=== PATIENT | female | born 1970 | race Caucasian/White ===

== ENCOUNTER 2024-04-30 09:07 | Emergency (ER) | payer OTHER ==
[2024-04-30] MEDS ORDERED: MORPHINE 4 MG/ML SYR ONE (09:35)
[2024-04-30] MEDS ORDERED: FAMOTIDINE 20 MG/2 ML VIAL IV ONE (09:35)
[2024-04-30] MEDS ORDERED: ONDANSETRON 4 MG/2 ML VIAL ONE (09:35)
[2024-04-30] MEDS ORDERED: NA CHLORIDE 0.9% 1,000 ML ONE (09:35)
[2024-04-30 10:19] LABS: Specific Gravity < 1.005 (1.005-1.030); Sqamous Epithelial None Seen /HPF (None Seen); Urine Bacteria <20 /HPF (<20); Urine Bilirubin NEGATIVE (Negative); Urine Blood Trace (Negative); Urine Clarity Clear (Clear); Urine Color Colorless (Yellow); Urine Culture Reflex Order NOT NEEDED; Urine Glucose NEGATIVE (Negative); Urine Ketones NEGATIVE (Negative); Urine Microscopic Reflex YN ORDER UMIC; Urine Nitrite NEGATIVE (Negative); Urine Protein NEGATIVE (Negative); Urine RBC <5 /HPF (None Seen); Urine Urobilinogen Normal (Normal); Urine WBC None Seen /HPF (<5); Urine pH 6.5 (5.0-7.0)
[2024-04-30 10:41] LABS: Absolute Lymphocytes (CBC) 1.7 K/uL (0.7-4.9); Absolute Monocytes 0.7 K/uL (0.1-1.3); Absolute Neutrophil 2.9 K/uL (1.8-8.0); Basophils % 0.5 % (0-1.3); Eosinophils % 0.7 % (0-4.4); Hematocrit 46.5 % (36.0-45.0); Hemoglobin 15.8 g/dL (12.0-15.0); MCH 30.4 pg (27.0-35.0); MCHC 34.1 g/dL (32.0-36.0); MCV 89.2 fL (80-100); MPV 7.8 fL (7.6-11.3); Neutrophils % 53.8 % (41.7-73.7); Nucleated Red Blood Cells % 0.1 % (0-0); Platelets 211 thou/uL (152-406); RBC Red Blood Cell Count 5.21 M/uL (3.86-4.86)
[2024-04-30 11:08] LABS: Albumin 3.3 g/dL (3.4-5.0); Bilirubin Total 0.2 mg/dL (0.2-1.0); Globulin 3.3 g/dL (2.3-3.5); Protein, Total 6.6 g/dL (6.4-8.2)
--- NOTE | 2024-04-30 11:30 | RAD REPORT ---
EXAMINATION: CT ABDOMEN AND PELVIS WITH CONTRAST CLINICAL INDICATION: Abdominal pain TECHNIQUE: CT abdomen and pelvis was performed, after the administration of 100 cc Isovue-300.. Sagit samuel and coronal reconstructions were obtained. One or more of the following dose reduction techniques were used: Automated exposure control, adjustment of the mA and kV according to patient si ze, and iterative reconstruction. Unless otherwise specified, incidental findings do not require dedicated imaging follow-up. [id number]. Oral contrast was given. COMPARISON: .None FINDINGS: Liver, spleen, pancreas, adrenals and kidneys appear unremarkable No evidence of diverticulitis. Mild apparent thickening wall of sigmoid colon. Normal appendix. Hysterectomy. No adnexal mass. : IMPRESSION: Mild apparent thickening wall of colon may represent a mild colitis or be secondary to incomplete dis tention.
--- NOTE | 2024-04-30 11:47 | ER ---
Nurse's Notes [facility] Name: Cole Stone Age: 53 yrs Sex: Female : 1970 Arrival Date: 04/30/2024 Time: 09:07 Bed 6 Private MD: Diagnosis: Abdominal pain, Generalized;Left sided colitis;Left sided colitis without complications;Hypokalemia Presentation: 04/30 09:20 Chief complaint: Patient states: Saturday started having diarrhea, last night had abd iw pains. Coronavirus screen: At this time, the client does not indicate any symptoms associated with coronavirus-19. Ebola Screen: No symptoms or risks identified at this time. Initial Sepsis Screen: Does the patient meet any 2 criteria? No. Patient's initial sepsis screen is negative. Does the patient have a suspected source of infection? No. Patient's initial sepsis screen is negative. Risk Assessment: Do you want to hurt yourself or someone else? Patient reports no desire to harm self or others. Onset of symptoms was April 27, 2024. 09:20 Method Of Arrival: Ambulatory iw 09:20 Acuity: ELOISA 3 iw Triage Assessment: 09:30 General: Appears in no apparent distress. uncomfortable, Behavior is calm, cooperative, bp appropriate for age. Pain: Complains of pain in abdomen. EENT: No deficits noted. Neuro: No deficits noted. Cardiovascular: No deficits noted. Respiratory: No deficits noted. GI: Reports lower abdominal pain, diarrhea. : No signs and/or symptoms were reported regarding the genitourinary system. Derm: No deficits noted. Musculoskeletal: No deficits noted. 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 - Infectious Disease History:: Denies. - Social history:: Smoking status: Patient reports the use of cigarette tobacco products, smokes one-half pack cigarettes per day. Screenin:06 [facility] ED Fall Risk Assessment (Adult) History of falling in the last 3 months, bp including since admission No falls in past 3 months (0 pts) Confusion or Disorientation No (0 pts) Intoxicated or Sedated No (0 pts) Impaired Gait No (0 pts) Mobility Assist Device Used No (0 pt) Altered Elimination No (0 pt) Score/Fall Risk Level 0 - 2 = Low Risk Oriented to surroundings. Abuse screen: Denies threats or abuse. Denies injuries from another. Nutritional screening: No deficits noted. Tuberculosis screening: No symptoms or risk factors identified. Assessment: 09:30 General: Appears in no apparent distress. uncomfortable, Behavior is calm, cooperative, bp appropriate for age. Pain: Complains of pain in left lower quadrant and right lower quadrant. GI: Bowel sounds present X 4 quads. Abd is soft X 4 quads. 12:04 Reassessment: DC ON HOLD FOR IV ABX. bp 13:45 Reassessment: Patient appears in no apparent distress at this time. No changes from cm10 previously documented assessment. Patient and/or family updated on plan of care and expected duration. Pain level reassessed. Patient is alert, oriented x 3, equal unlabored respirations, skin warm/dry/pink. Vital Signs: 09:20 BP 136 / 103; Pulse 84; Resp 19; Temp 96.8; Pulse Ox 100% on R/A; iw 10:57 BP 133 / 85; Pulse 80; Pulse Ox 98% on R/A; ap3 12:07 BP 138 / 92; Pulse 72; Resp 16; Pulse Ox 100% ; bp ED Course: 09:12 Patient arrived in ED. al6 09:14 King Copeland MD is Attending Physician. vernon 09:21 Triage completed. iw 09:22 Arm band placed on. iw 09:30 Joey Blackburn, RN is Primary Nurse. bp 10:00 Initial lab(s) drawn, by vt, sent to lab. Urine collected: clean catch specimen, clear. bp Inserted saline lock: 22 gauge in left wrist, using aseptic technique. Blood collected. Flushed with 10 mL NS. 11:15 CT Abd/Pelvis - IV Contrast Only In Process Unspecified. EDMS 11:45 Marques Lofton DO is Referral Physician. vernon 11:45 Oliver Medina MD is Referral Physician. vernon 12:06 Patient has correct armband on for positive identification. bp 13:57 Provided Education on: Follow-up instructions. cm10 13:57 No provider procedures requiring assistance completed. IV discontinued, intact, cm10 bleeding controlled, No redness/swelling at site. Pressure dressing applied. Administered Medications: 09:59 Drug: Famotidine IVP 20 mg IVP once; dilute with 10 mL 0.9% NaCl; give over 2 minutes bp Route: IVP; Site: left wrist; 13:55 Follow up: Response: No adverse reaction cm10 09:59 Drug: Ondansetron IVP 4 mg IVP once; over 2 minutes Route: IVP; Site: left wrist; bp 13:54 Follow up: Response: No adverse reaction cm10 10:00 Drug: morphine IVP or IV 4 mg IVP once over 4 mins Route: IVP; Infused Over: 4 mins; bp Site: left wrist; 13:54 Follow up: Response: No adverse reaction cm10 10:00 Drug: NS 0.9% IV 1000 ml IV at 1 bolus Per protocol; to be given as a bolus over 60 bp minutes Route: IV; Rate: 1 bolus; Site: left wrist; 13:55 Follow up: Response: No adverse reaction; IV Status: Completed infusion; IV Intake: cm10 1000ml 12:00 Drug: Potassium PO Effervescent Tablet 50 mEq PO once; dissolve in 4 ounces of water or bp juice Route: PO; 13:56 Follow up: Response: No adverse reaction cm10 12:00 Drug: Ciprofloxacin IVPB 400 mg 200 ml IVPB once over 60 mins Volume: 200 ml; Route: bp IVPB; Infused Over: 60 mins; Site: left wrist; 13:56 Follow up: Response: No adverse reaction; IV Status: Completed infusion; IV Intake: cm10 200ml 12:00 Drug: metroNIDAZOLE IVPB 500 mg 100 ml IVPB at 200 ml/hr once over 30 mins Volume: 100 bp ml; Route: IVPB; Rate: 200 ml/hr; Infused Over: 30 mins; Site: left wrist; 13:56 Follow up: Response: No adverse reaction; IV Status: Completed infusion; IV Intake: cm10 100ml 13:54 Drug: Ondansetron PO 4 mg PO once Route: PO; cm10 13:56 Follow up: Response: No adverse reaction cm10 Medication: 13:58 VIS not applicable for this client. cm10 Intake: 13:55 IV: 1000ml; Total: 1000ml. cm10 13:56 IV: 100ml; Total: 1100ml. cm10 13:56 IV: 200ml; Total: 1300ml. cm10 Outcome: 11:46 Discharge ordered by . vernon 13:57 Discharged to home ambulatory, cm10 13:57 Condition: good 13:57 Discharge instructions given to patient, Instructed on discharge instructions, follow up and referral plans. medication usage, Demonstrated understanding of instructions, follow-up care, medications, Prescriptions given X 5 13:58 Patient left the ED. cm10 Signatures: Dispatcher [employer] EDMS King Copeland MD MD cha Williams, Irene RN Joey Molina RN RN Kaelyn Pierson RN RN ap3 Tara Ellsworth RN RN cm10 Radha [email or web address]
--- NOTE | 2024-04-30 11:47 | EDPHYS ---
Physician Documentation [facility] Name: Cole Stone Age: 53 yrs Sex: Female : 1970 Arrival Date: 04/30/2024 Time: 09:07 Bed 6 Private MD: VÍCTOR Physician King Copeland HPI: 04/30 11:33 This 53 yrs old Female presents to ER via Ambulatory with complaints of vernon Abdominal Pain, Diarrhea. 11:33 The patient presents to the emergency department with diarrhea, that is intermittent, vernon abdominal pain. Onset: The symptoms/episode began/occurred 2 day(s) ago. Possible causes: unknown. The symptoms are aggravated by. Associated signs and symptoms: The patient has no apparent associated signs or symptoms. Severity of symptoms: At their worst the symptoms were moderate in the emergency department the symptoms are unchanged. The patient has experienced similar episodes in the past, several times. 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 - Infectious Disease History:: Denies. - Social history:: Smoking status: Patient reports the use of cigarette tobacco products, smokes one-half pack cigarettes per day. ROS: 11:37 Constitutional: Negative for fever, chills, and weight loss, Eyes: Negative for injury, vernon pain, redness, and discharge, ENT: Negative for injury, pain, and discharge, Neck: Negative for injury, pain, and swelling, Cardiovascular: Negative for chest pain, palpitations, and edema, Respiratory: Negative for shortness of breath, cough, wheezing, and pleuritic chest pain, Back: Negative for injury and pain, : Negative for injury, bleeding, discharge, and swelling, MS/Extremity: Negative for injury and deformity, Skin: Negative for injury, rash, and discoloration, Neuro: Negative for headache, weakness, numbness, tingling, and seizure, Psych: Negative for depression, anxiety, suicide ideation, homicidal ideation, and hallucinations, Allergy/Immunology: Negative for hives, rash, and allergies, Endocrine: Negative for neck swelling, polydipsia, polyuria, polyphagia, and marked weight changes, Hematologic/Lymphatic: Negative for swollen nodes, abnormal bleeding, and unusual bruising, 11:37 Abdomen/GI: Positive for abdominal pain, diarrhea, abdominal cramps, abdominal distension, Exam: 11:37 Constitutional: This is a well developed, well nourished patient who is awake, alert, vernon and in no acute distress. Head/Face: Normocephalic, atraumatic. Eyes: Pupils equal round and reactive to light, extra-ocular motions intact. Lids and lashes normal. Conjunctiva and sclera are non-icteric and not injected. Cornea within normal limits. Periorbital areas with no swelling, redness, or edema. ENT: Nares patent. No nasal discharge, no septal abnormalities noted. Tympanic membranes are normal and external auditory canals are clear. Oropharynx with no redness, swelling, or masses, exudates, or evidence of obstruction, uvula midline. Mucous membranes moist. Neck: Trachea midline, no thyromegaly or masses palpated, and no cervical lymphadenopathy. Supple, full range of motion without nuchal rigidity, or vertebral point tenderness. No Meningismus. Chest/axilla: Normal chest wall appearance and motion. Nontender with no deformity. No lesions are appreciated. Cardiovascular: Regular rate and rhythm with a normal S1 and S2. No gallops, murmurs, or rubs. Normal PMI, no JVD. No pulse deficits. Respiratory: Lungs have equal breath sounds bilaterally, clear to auscultation and percussion. No rales, rhonchi or wheezes noted. No increased work of breathing, no retractions or nasal flaring. Back: No spinal tenderness. No costovertebral tenderness. Full range of motion. Skin: Warm, dry with normal turgor. Normal color with no rashes, no lesions, and no evidence of cellulitis. MS/ Extremity: Pulses equal, no cyanosis. Neurovascular intact. Full, normal range of motion., bilateral aka Neuro: Awake and alert, GCS 15, oriented to person, place, time, and situation. Cranial nerves II-XII grossly intact. Motor strength 5/5 in all extremities. Sensory grossly intact. Cerebellar exam normal. Normal gait. Psych: Awake, alert, with orientation to person, place and time. Behavior, mood, and affect are within normal limits. 11:37 Abdomen/GI: Inspection: abdomen appears normal, Bowel sounds: normal, Palpation: mild abdominal tenderness, in the right lower quadrant and left lower quadrant, Liver: no appreciated palpable abnormalities, Hernia: not appreciated, Vital Signs: 09:20 BP 136 / 103; Pulse 84; Resp 19; Temp 96.8; Pulse Ox 100% on R/A; iw 10:57 BP 133 / 85; Pulse 80; Pulse Ox 98% on R/A; ap3 12:07 BP 138 / 92; Pulse 72; Resp 16; Pulse Ox 100% ; bp MDM: 09:14 Medical Screening Exam initiated vernon 11:39 Differential diagnosis: Nonspecific abd pain, gastritis, cholecystitis, pancreatitis, vernon appendicitis, diverticulitis, viral gastroenteritis, gastroenteritis, cholecystitis, Cholelithiasis, diverticulitis. Data reviewed: vital signs, nurses notes, lab test result(s), radiologic studies, CT scan. Consideration of Admission/Observation Escalation of care including admission/observation considered. I considered the following discharge prescriptions or medication management in the emergency department Medications were administered in the Emergency Department. See MAR. Independent interpretation of the following test(s) in the Emergency Department CT Scan: My interpretation is ct abd / pelvis. Historians other than the Patient: pt well informed. Care significantly affected by the following chronic conditions: none. 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 04/30 09:22 Order name: CBC with Diff; Complete Time: 11:32 [facility] 04/30 09:22 Order name: CMP; Complete Time: 11:32 [facility] 04/30 09:22 Order name: Lipase; Complete Time: 11:32 [facility] 04/30 09:22 Order name: Urinalysis w/ reflexes; Complete Time: 11:32 [facility] 04/30 09:22 Order name: CT Abd/Pelvis - IV Contrast Only; Complete Time: 11:32 [facility] 04/30 09:22 Order name: IV Saline Lock; Complete Time: 09:59 [facility] 04/30 09:22 Order name: Labs collected and sent; Complete Time: :59 [facility] 04/30 10:15 Order name: Labs - recollect needed: purple and green ; Complete Time: 10:33 bc6 Administered Medications: 09:59 Drug: Famotidine IVP 20 mg IVP once; dilute with 10 mL 0.9% NaCl; give over 2 minutes bp Route: IVP; Site: left wrist; 13:55 Follow up: Response: No adverse reaction cm10 09:59 Drug: Ondansetron IVP 4 mg IVP once; over 2 minutes Route: IVP; Site: left wrist; bp 13:54 Follow up: Response: No adverse reaction cm10 10:00 Drug: morphine IVP or IV 4 mg IVP once over 4 mins Route: IVP; Infused Over: 4 mins; bp Site: left wrist; 13:54 Follow up: Response: No adverse reaction cm10 10:00 Drug: NS 0.9% IV 1000 ml IV at 1 bolus Per protocol; to be given as a bolus over 60 bp minutes Route: IV; Rate: 1 bolus; Site: left wrist; 13:55 Follow up: Response: No adverse reaction; IV Status: Completed infusion; IV Intake: cm10 1000ml 12:00 Drug: Potassium PO Effervescent Tablet 50 mEq PO once; dissolve in 4 ounces of water or bp juice Route: PO; 13:56 Follow up: Response: No adverse reaction cm10 12:00 Drug: Ciprofloxacin IVPB 400 mg 200 ml IVPB once over 60 mins Volume: 200 ml; Route: bp IVPB; Infused Over: 60 mins; Site: left wrist; 13:56 Follow up: Response: No adverse reaction; IV Status: Completed infusion; IV Intake: cm10 200ml 12:00 Drug: metroNIDAZOLE IVPB 500 mg 100 ml IVPB at 200 ml/hr once over 30 mins Volume: 100 bp ml; Route: IVPB; Rate: 200 ml/hr; Infused Over: 30 mins; Site: left wrist; 13:56 Follow up: Response: No adverse reaction; IV Status: Completed infusion; IV Intake: cm10 100ml 13:54 Drug: Ondansetron PO 4 mg PO once Route: PO; cm10 13:56 Follow up: Response: No adverse reaction cm10 Disposition Summary: 04/30/24 11:46 Discharge Ordered Notes: Location: Home vernon Problem: new vernon Symptoms: have improved vernon Condition: Stable vernon Diagnosis - Abdominal pain, Generalized vernon - Left sided colitis vernon - Left sided colitis without complications vernon - Hypokalemia vernon Followup: vernon - With: Private Physician - When: 2 - 3 days - Reason: Recheck today's complaints, Continuance of care, Re-evaluation by your physician Followup: vernon - With: Marques Lofton DO - When: 2 - 3 days - Reason: Recheck today's complaints, Re-evaluation by your physician Followup: vernon - With: Oliver Medina MD - When: 2 - 3 days - Reason: Recheck today's complaints, Re-evaluation by your physician Discharge Instructions: - Discharge Summary Sheet vernon - Abdominal Pain, Adult vernon - Food Choices to Help Relieve Diarrhea, Adult vernon - Diarrhea, Adult vernon - Potassium Content of Foods vernon - Abdominal Pain, Adult, [id number] vernon - Diarrhea, Adult, [id number] vernon - Hypokalemia vernon - Colitis vernon Forms: - Medication Reconciliation Form vernon - Antibiotic Education vernon - Prescription Opioid Use vernon - Patient Portal Instructions vernon - Leadership Thank You Letter vernon - Work release form cm10 Prescriptions: - ondansetron 4 mg Oral Tablet,disintegrating - take 1 tablet ORAL route every 6-8 hours; 20 tablet; Refills: 0, Product vernon Selection Permitted - Cipro 250 mg Oral tablet - take 1 tablet ORAL route every 12 hours; 14 tablet; Refills: 0, Product [facility] Selection Permitted - Flagyl 500 mg Oral tablet - take 1 tablet ORAL route every 8 hours for 7 days; 21 tablet; Refills: 0, [facility] Product Selection Permitted - Pepcid 20 mg Oral Tablet - take 1 tablet ORAL route every 12 hours for 10 days; 20 tablet; Refills: 0, [facility] Product Selection Permitted - Potassium Chloride 20 meq Oral Packet - take 1 packet ORAL route every 12 hours 1 packet in 6 (six) ounces of water or vernon juice; Take after meal; 14 packet; Refills: 0, Product Selection Permitted - dicyclomine 20 mg Oral tablet - take 1 tablet ORAL route 4 times per day; 28 tablet; Refills: 0, Product vernon Selection Permitted Signatures: Dispatcher [employer] King Casillas MD MD cha Williams, Irene RN Joey Molina RN Orly Fam Tara Quintana RN RN cm10
[2024-04-30] MEDS ORDERED: CIPROFLOXACIN 400mg IV 400 MG/200 ML BAG IV ONE (11:53)
[2024-04-30] MEDS ORDERED: POTASSIUM 25 MEQ EFFERV TAB ONE (11:53)
[2024-04-30] MEDS ORDERED: METRONIDAZOLE 500mg IVPB 500 MG/100 ML BAG IV ONE (11:54)
[2024-04-30] MEDS ORDERED: ONDANSETRON 4 MG (ODT) TAB ONE (13:47)
[2024-04-30 14:12] VITALS: TEMP 96.8
[2024-04-30 14:17] VITALS: BP 138/92; O2SAT 100
== END 2024-04-30 13:58 | disposition home or self-care (01) ==
LOC: ER 09:07
DX: K51.50 Left sided colitis without complications (principal); R10.84 Generalized abdominal pain; E87.6 Hypokalemia; F17.210 Nicotine dependence, cigarettes, uncomplicated
CPT/HCPCS: 96365; 96361; 96368; 85025; 81001; 36415; 83690; 80053; 74177; 96375; 99284; 96366; Q9967; Q0162; J2405; J0744; J7030